=== PATIENT | female | born 1960 | race Caucasian/White ===

== ENCOUNTER 2016-07-16 17:19 | Emergency (ER) | payer BC ==
--- NOTE | 2016-07-16 18:31 | UC ---
Respiratory Complaint HPI - HPI Summary HPI Summary: The patient comes in today for: 1. Cough: Onset: 5 days ago. Palliative/provocative: Nothing makes the cough better or worse. Aleve helped the sore throat. Quality: harsh. Region: Lungs Severity: sore throat 5/10 Time:Constant. Associated symptoms: Cough production: white "mucous" phlegm. Rhinitis: Productive, but not inspected. Sinus pressure: None. Upper tooth pain: Fever: No temperature taken. Shortness of breath: None. Wheezing: None. * - History of Current Complaint Chief Complaint: UCGeneralIllness Stated Complaint: COUGH Time Seen by Provider: 07/16/16 17:39 Hx Last Menstrual Period: 6 years ago. ?: No - Allergies/Home Medications Allergies/Adverse Reactions: Allergies Allergy/AdvReac Type Severity Reaction Status Date / Time No Known Allergies Allergy Verified 07/16/16 18:07 Home Medications: Home Medications Umeclidinium [place] [Incruse Ellipta] 62.5 mcg IN DAILY 07/16/16 [History Confirmed 07/16/16] PMH/Surg Hx/FS Hx/Imm Hx Previously Healthy: No Endocrine History Of: Reports: Thyroid Disease, Dyslipidemia Denies: Diabetes, Hyperthyroidism, Hypothyroidism Cardiovascular History Of: Reports: Hypertension Denies: Cardiac Disorders, Pacemaker/ICD, Myocardial Infarction, Congestive Heart Failure, Atrial Fibrillation, Deep Vein Thrombosis, Bleeding Disorders Respiratory History Of: Reports: COPD - On Proair and Ellipta. Denies: Asthma, Bronchitis, Pneumonia, Pulmonary Embolism GI/ History Of: Denies: Gastroesophageal Reflux, Ulcer, Gastrointestinal Bleed, Gall Bladder Disease, Kidney Stones, Diverticulitis, Renal Disease, Urosepsis Neurological History Of: Denies: TIA, CVA, Dementia, Seizures, Migraine Psychological History Of: Denies: Anxiety, Depression, Bipolar Disorder, Schizophrenia, Post Traumatic Stress Disorder Cancer History Of: Denies: Lung Cancer, Colorectal Cancer, Breast Cancer, Prostate Cancer, Cervical Cancer Other History Of: Negative For: HIV, Hepatitis B, Hepatitis C, Anticoagulant Therapy - Surgical History Surgical History: Yes Surgery Procedure, Year, and Place: 1984 - Family History Known Family History: Positive: Cardiac Disease, Hypertension - Social History Occupation: Employed Full-time Alcohol Use: None Substance Use Type: None Smoking Status (MU): Heavy Every Day Tobacco Smoker Type: Cigarettes Amount Used/How Often: 1 PPD Review of Systems Constitutional: Negative Skin: Negative Eyes: Negative ENT: Sore Throat, Nasal Discharge Respiratory: Cough Cardiovascular: Negative Gastrointestinal: Negative Genitourinary: Negative All Other Systems Reviewed And Are Negative: Yes Physical Exam Triage Information Reviewed: Yes Appearance: Well-Appearing, No Pain Distress, Well-Nourished Vital Signs: Initial Vital Signs Temp 96.8 F 07/16/16 18:12 Pulse 85 07/16/16 18:12 Resp 16 07/16/16 18:12 BP 135/73 07/16/16 18:12 Pulse Ox 98 07/16/16 18:12 Vital Signs Reviewed: Yes Eyes: Positive: Conjunctiva Clear. Negative: Discharge ENT: Positive: Hearing grossly normal. Negative: Pharyngeal erythema, Nasal congestion, Nasal drainage, TM bulging, TM dull, TM red, Tonsillar swelling, Tonsillar exudate Dental: Negative: Gross Decay/Caries @, Dental Fracture @ Neck: Positive: Supple, Nontender, No Lymphadenopathy. Negative: Nuchal Rigidity Respiratory: Positive: Lungs clear, No respiratory distress, No accessory muscle use. Negative: Crackles, Wheezing Cardiovascular: Positive: RRR, No Murmur Abdomen Description: Positive: Nontender, No Organomegaly, Soft. Negative: Distended, Guarding Musculoskeletal: Positive: Strength Intact, ROM Intact, No Edema Neurological: Positive: Alert, Muscle Tone Normal Psychological: Positive: Normal Response To Family, Age Appropriate Behavior, Consolable Skin: Negative: rashes, breakdown UC Diagnostic Evaluation - Laboratory O2 Sat by Pulse Oximetry: 98 Respiratory Course/Dx - Course Course Of Treatment: Patient was told my goal for her cough would be for a cough suppressant and steroid inhaler while she uses the albuterol and the Ellipta inhalers. - Differential Dx/Diagnosis Differential Diagnosis/HQI/PQRI: Asthma, Bronchitis, Sinusitis Provider Diagnoses: Cough. COPD Discharge - Discharge Plan Condition: Stable Disposition: HOME Patient Education Materials: COPD (Chronic Obstructive Pulmonary Disease) (ED) Referrals: MONIKA Haas [Primary Care Provider] - 1 Week (Please see your primary care provider in about a week to see how well you are doing. If you get worse, please be seen sooner.) Additional Instructions: Please use both your Ellipta and Proair inhaler along with the QVAR inhaler.
[2016-07-16 18:42] VITALS: BP 135/73
== END 2016-07-16 18:45 | disposition home or self-care (01) ==
LOC: UCCORT 17:19
DX: J44.9 Chronic obstructive pulmonary disease, unspecified (principal); R05 Cough; F17.210 Nicotine dependence, cigarettes, uncomplicated
CPT/HCPCS: 99212; G0463

== ENCOUNTER 2017-09-08 07:04 | Emergency (ER) | payer BC ==
[2017-09-08 07:36] VITALS: BP 150/76
--- NOTE | 2017-09-08 07:59 | UC ---
UC General HPI - HPI Summary HPI Summary: 57 yo female c/o approx one week progressive cough, + yellow sputum production, ear discomfort. Progressively worse. Mild GI upset (loose stool, gurgly). No rash. No new edema, mild sore throat. - History of Current Complaint Chief Complaint: UCRespiratory Stated Complaint: LEFT EAR COMPLAINT, STOMACH ACHE Time Seen by Provider: 09/08/17 07:32 Hx Obtained From: Patient Hx Last Menstrual Period: age 50 Pain Intensity: 1 - Allergy/Home Medications Allergies/Adverse Reactions: Allergies Allergy/AdvReac Type Severity Reaction Status Date / Time No Known Allergies Allergy Verified 09/08/17 07:37 Home Medications: Home Medications metFORMIN* [Glucophage 1000 MG TAB *] 1,000 mg PO QPM 09/08/17 [History Confirmed 09/08/17] PMH/Surg Hx/FS Hx/Imm Hx Previously Healthy: Yes - prediabetic Other History Of: Negative For: HIV, Hepatitis B, Hepatitis C, Anticoagulant Therapy - Surgical History Surgical History: Yes Surgery Procedure, Year, and Place: 1984 - Family History Known Family History: Positive: Cardiac Disease, Hypertension - Social History Alcohol Use: None Substance Use Type: None Smoking Status (MU): Heavy Every Day Tobacco Smoker Type: Cigarettes Amount Used/How Often: 1 PPD Review of Systems Constitutional: Fatigue Skin: Negative Eyes: Negative ENT: Other - see hpi Respiratory: Cough Cardiovascular: Negative Gastrointestinal: Other - see hpi Motor: Negative Neurovascular: Negative Musculoskeletal: Negative Neurological: Negative Psychological: Negative Is Patient Immunocompromised?: No All Other Systems Reviewed And Are Negative: Yes Physical Exam Triage Information Reviewed: Yes Appearance: Well-Nourished Vital Signs: Initial Vital Signs Temp 98.2 F 09/08/17 07:28 Pulse 91 09/08/17 07:28 Resp 20 09/08/17 07:28 BP 150/76 09/08/17 07:28 Pulse Ox 98 09/08/17 07:28 Vital Signs Reviewed: Yes Eye Exam: Normal ENT: Positive: Pharynx normal - mild redness, c/w cough, TM dull Neck exam: Normal Neck: Positive: Supple, Nontender, No Lymphadenopathy Respiratory Exam: Other - + wheeze mild scattered. + ronchorus cough. Respiratory: Positive: No respiratory distress, No accessory muscle use Abdominal Exam: Normal Abdomen Description: Positive: Nontender Bowel Sounds: Positive: Hyperactive Musculoskeletal Exam: Normal Musculoskeletal: Positive: Strength Intact, ROM Intact Neurological Exam: Normal - grossly nonfocal Psychological Exam: Normal Skin Exam: Normal Course/Dx - Course Course Of Treatment: Reviewed coa / tx plan with pt. Questions as posed answered to the best of my ability. Declines refill inhalers. Will f/u pcp. - Differential Dx - Multi-Symptom Provider Diagnoses: Bronchitis with wheezing Discharge - Sign-Out/Discharge Documenting (check all that apply): Discharge/Admit/Transfer - Discharge Plan Condition: Stable Disposition: HOME Prescriptions: Azithromycin TAB* [Zithromax TAB (Z-HAO) 250 mg #6 tabs] 2 tab PO .TODAY, THEN 1 DAILY #1 hao Patient Education Materials: Acute Bronchitis (ED), Wheezing (ED) Forms: *Work Release Referrals: MONIKA Haas [Primary Care Provider] - Additional Instructions: Follow up primary care physician recheck - if possible, in 1-2 weeks for recheck. Seek medical attention for worse or new problems in the meantime. - Billing Disposition and Condition Condition: STABLE Disposition: HOME
== END 2017-09-08 08:04 | disposition home or self-care (01) ==
LOC: UCCORT 07:04
DX: J40 Bronchitis, not specified as acute or chronic (principal); R06.2 Wheezing; F17.210 Nicotine dependence, cigarettes, uncomplicated
CPT/HCPCS: 99212; G0463

== ENCOUNTER 2017-11-16 07:02 | Emergency (ER) | payer BC ==
[2017-11-16 07:12] VITALS: BP 149/85
--- NOTE | 2017-11-16 07:24 | ED ---
HPI Febrile Illness - HPI Summary HPI Summary: 57 yr old with chills and sweats. Onset a day ago. No NVD. NO urinary symptoms. No runny nose, cough, sore throat. No joint pain. No rash. She has no other specific complaints. she is able to eat and drink. No documented fever. - History of Current Complaint Chief Complaint: UCGeneralIllness Time Seen by Provider: 11/16/17 07:15 Hx Last Menstrual Period: age 50 Pain Intensity: 0 - Allergy/Home Medications Allergies/Adverse Reactions: Allergies Allergy/AdvReac Type Severity Reaction Status Date / Time No Known Allergies Allergy Verified 11/16/17 07:07 PMH/Surg Hx/FS Hx/Imm Hx Endocrine/Hematology History: Reports: Hx Diabetes - pre, Hx Thyroid Disease Denies: Hx Anticoagulant Therapy Cardiovascular History: Reports: Hx Hypertension Denies: Hx Congestive Heart Failure, Hx Deep Vein Thrombosis, Hx Myocardial Infarction, Hx Pacemaker/ICD Respiratory History: Reports: Hx Chronic Obstructive Pulmonary Disease (COPD) - On Proair and Ellipta. Denies: Hx Asthma, Hx Lung Cancer, Hx Pneumonia, Hx Pulmonary Embolism GI History: Denies: Hx Gall Bladder Disease, Hx Gastrointestinal Bleed, Hx Ulcer, Hx Urosepsis History: Denies: Hx Kidney Stones, Hx Renal Disease Neurological History: Denies: Hx Dementia, Hx Migraine, Hx Seizures, Hx Transient Ischemic Attacks (TIA) Psychiatric History: Denies: Hx Anxiety, Hx Depression, Hx Schizophrenia, Hx Bipolar Disorder - Surgical History Surgery Procedure, Year, and Place: 1984. kidney stone surgeryx2 Infectious Disease History: No Infectious Disease History: Denies: Traveled Outside the [place] in Last 30 Days - Family History Known Family History: Positive: Cardiac Disease, Hypertension - Social History Alcohol Use: None Substance Use Type: Reports: None Smoking Status (MU): Heavy Every Day Tobacco Smoker Type: Cigarettes Amount Used/How Often: 1 PPD Review of Systems Positive: Chills All Other Systems Reviewed And Are Negative: Yes Physical Exam Triage Information Reviewed: Yes Vital Signs On Initial Exam: Initial Vitals Temp Pulse Resp BP Pulse Ox 98.4 F 100 19 149/85 99 11/16/17 07:09 11/16/17 07:09 11/16/17 07:09 11/16/17 07:09 11/16/17 07:09 Vital Signs Reviewed: Yes Appearance: Positive: Well-Appearing, No Pain Distress Skin: Positive: Warm, Skin Color Reflects Adequate Perfusion Head/Face: Positive: Normal Head/Face Inspection Eyes: Positive: EOMI ENT: Positive: Pharynx normal, TMs normal Neck: Positive: Nontender Respiratory/Lung Sounds: Positive: Clear to Auscultation, Breath Sounds Present Cardiovascular: Positive: RRR. Negative: Murmur Abdomen Description: Positive: Nontender. Negative: CVA Tenderness (R), CVA Tenderness (L) Musculoskeletal: Positive: Strength/ROM Intact Neurological: Positive: Sensory/Motor Intact, Alert, Oriented to Person Place, Time, CN Intact II-III Psychiatric: Positive: Normal - [place] Coma Scale Best Eye Response: 4 - Spontaneous Best Motor Response: 6 - Obeys Commands Best Verbal Response: 5 - Oriented Coma Scale Total: 15 Diagnostics - Vital Signs Vital Signs Temp Pulse Resp BP Pulse Ox 11/16/17 07:09 98.4 F 100 19 149/85 99 - Laboratory Lab Statement: Any lab studies that have been ordered have been reviewed, and results considered in the medical decision making process. Course/Dx - Course Course Of Treatment: 57 yr old with non specific feeling of chills for a day. Will check UA. Does not look ill. She has been referred to ER for further testing at this point since she states she feels off and doesn't know why. Urine dip is negative. - Diagnoses Provider Diagnoses: Chills (without fever), Hypertension Discharge - Sign-Out/Discharge Documenting (check all that apply): Discharge/Admit/Transfer - Discharge Plan Condition: Good Disposition: TRANS HIGHER LVL OF CARE FAC Patient Education Materials: Fever in Adults (ED) Referrals: No Primary Care Phys,NOPCP [Primary Care Provider] - [facility] [place] [facility] [Outside] Additional Instructions: You should go to the ER for further evaluations of your fever, chills, sweat symptoms. Go now after you leave here. - Billing Disposition and Condition Condition: GOOD Disposition: Trans Higher Lvl of Care Fac
== END 2017-11-16 07:45 | disposition short-term general hospital (02) ==
LOC: UCCORT 07:02
DX: R68.83 Chills (without fever) (principal); I10 Essential (primary) hypertension; R73.03 Prediabetes; F17.210 Nicotine dependence, cigarettes, uncomplicated
CPT/HCPCS: 81003; 99212; G0463

== ENCOUNTER 2018-06-18 07:17 | Emergency (ER) | payer BC ==
[2018-06-18 08:21] VITALS: BP 135/93
== END 2018-06-18 09:35 | disposition left against medical advice (07) ==
LOC: UCCORT 07:17
DX: Z53.21 Procedure and treatment not carried out due to patient leaving prior to being seen by health care provider (principal)